=== PATIENT | male | born 1975 | race Caucasian/White ===

== ENCOUNTER 2024-07-26 22:14 | Emergency (ER) | payer BC, SELFPAY ==
[2024-07-26 22:19] VITALS: BP 171/91; PULSE 103; RESP 18; TEMP 36.7; O2SAT 100; BMI 25.8
[2024-07-27 01:06] VITALS: BP 169/89; PULSE 98; RESP 18; O2SAT 100
--- NOTE | 2024-07-27 05:50 | ED.SKABFB ---
HPI - Skin/Abscess/Foreign Bdy General Chief complaint: Skin/Abscess/Foreign Body Stated complaint: abscess Time Seen by Provider: 07/27/24 05:30 Source: patient Mode of arrival: ambulatory Limitations: no limitations History of Present Illness ED Provider: Dr. Tab Sutherland HPI narrative: 49-year-old male who presents emergency department for evaluation of an abscess to his left upper back x2 weeks. Patient states that the abscess is draining. The abscess is gotten bigger and more painful. He denied fever, chills, fatigue. Related Data Previous Rx's ?Medication ?Instructions ?Recorded cephalexin 500 mg capsule 500 mg PO QID 5 days #20 caps 07/27/24 Allergies Allergy/AdvReac Type Severity Reaction Status Date / Time No Known Allergies Allergy Verified 07/26/24 22:21 Review of Systems Review of Systems: Yes all other systems are reviewed and are negative [facility] Social History Social History Smoked in Last 30 Days: Yes Use of substances other than those prescribed or required for medical reasons: No Advance Directives: No Do you have a plan to hurt others: No Plan Physical Exam Vital Signs: Vital Signs: Last Vital Signs Temp 98.1 F 07/26/24 22:19 Pulse 98 07/27/24 01:06 Resp 18 07/27/24 01:06 BP 169/89 H 07/27/24 01:06 Pulse Ox 100 07/27/24 01:06 O2 Del Method Room Air 07/27/24 01:06 BMI result Body Mass Index 25.8 Vital signs did reveal an elevated blood pressure of 169/9 otherwise unremarkable the came in Exam: Back: Patient has a 3 x 4 cm abscess to the left back over the scapula, the abscess is draining however there is a large flocculent area as well as a large indurated area. There is erythema over the abscess with increased warmth Medical Decision Making Medical Decision Making MDM Narrative: 49-year-old male who presents emergency department for evaluation of abscess to his left back x2 weeks which is draining. Vital signs revealed an elevated blood pressure otherwise unremarkable. Exam is consistent with an abscess to his left back with an area of flocculence that is minimally draining and an area induration. There is surrounding erythema. Differential diagnosis: ?Includes but is not limited to abscess, cellulitis Course: Patient's abscess was incised and drained by me. 1/2 inch iodoform packing was inserted into the incision site. Patient was given Keflex 500 mg orally and ibuprofen 4 mg orally. Patient was given a prescription for Keflex 500 mg 4 times a day for 5 days. He was given printed and verbal instructions and discharged home Admission/Observation Consideration of admission/observation: Escalation of care including admission/observation considered (No) Prescription Management I considered prescription management with: Antibiotic (Keflex) Procedures Abscess I/D Site: back Side (if applicable): left Local Anesthetic: lidocaine 1% Amount of anesthesia used (mL): 10 Technique: incised with blade (#11) Amount of fluid expressed (mL): 30 Sent for culture/gram staining?: No Irrigation: No Packing used?: iodoform Discharge Plan Discharge Clinical Impression: Encounter for incision and drainage procedure, Abscess of back Patient Disposition: Home, Self-Care Instructions: Abscess (ED) Additional Instructions: The abscess on your back was drained and we put a small amount of packing into the incision site. Keep the dressing on for 24 hours and when you remove the dressing try not to take the packing out. If the packing falls out when you change the dressing it does not need to be put back in.The packing should stay in for 2-3 days and then you can remove it by just pulling on the end Take Keflex (cephalexin) 500 mg pills, one pill 4 times a day for 5 days Take ibuprofen 200 mg pills, 2 pills every 6 hours as needed for pain or fever. Take Tylenol (acetaminophen) 500 mg pills, 2 pills every 6 hours as needed for pain or fever. Follow-up with your doctor in 2 days. Please return to the emergency department if your symptoms get worse or if you develop any symptoms that are concerning to you. Prescriptions: New cephalexin 500 mg capsule 500 mg PO QID 5 Days Qty: 20 0RF Interventions: ED Discharge Assessment Last Done: 07/27/24 06:05 Discharge Date/Time: 07/27/24 06:06 Print Language: Croatian
[2024-07-27] MEDS: Lidocaine HCl 1 % MPF 5 ML VIAL INFILTRATI ×2 (05:56)
[2024-07-27] MEDS: Ibuprofen 400 MG TABLET PO (05:58)
[2024-07-27] MEDS: cephALEXin 500 MG CAPSULE PO (05:58)
[2024-07-27 06:05] VITALS: BP 169/89; PULSE 98; RESP 18; TEMP 36.8; O2SAT 100
== END 2024-07-27 06:06 | disposition home or self-care (01) ==
PROVIDERS: Emergency Provider Emergency Medicine Emergency Medical Services
DX: L02.212 Cutaneous abscess of back [any part, except buttock and flank] (principal)
CPT/HCPCS: 10060; 99284; J2003